=== PATIENT | male | born 1980 | race American Indian/Alaskan Native ===

== ENCOUNTER 2019-02-13 12:45 | Emergency (ER) | payer SELFPAY ==
--- NOTE | 2019-02-13 12:56 | Emergency Department Report ---
Blank Doc - Documentation Documentation: Pt had a change in thought. 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
== END 2019-02-13 12:55 | disposition left against medical advice (07) ==
LOC: ED 12:45
DX: R07.89 Other chest pain (principal); Z53.21 Procedure and treatment not carried out due to patient leaving prior to being seen by health care provider

== ENCOUNTER 2019-02-15 14:05 | Emergency (ER) | payer SELFPAY ==
[2019-02-15 14:21] VITALS: BP 120/78
[2019-02-15] MEDS ORDERED: IBUPROFEN 800 MG TAB PO ONE (14:36)
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
== END 2019-02-15 16:16 | disposition home or self-care (01) ==
LOC: ED 14:05
DX: M54.2 Cervicalgia (principal); M54.5 Low back pain; M25.562 Pain in left knee; R07.89 Other chest pain; M79.10 Myalgia, unspecified site; Z87.891 Personal history of nicotine dependence; Z79.899 Other long term (current) drug therapy; V89.2XXA Person injured in unspecified motor-vehicle accident, traffic, initial encounter; Y93.89 Activity, other specified; Y92.488 Other paved roadways as the place of occurrence of the external cause; Y99.8 Other external cause status
CPT/HCPCS: 71046; 72040; 72100; 99283